=== PATIENT | male | born 1955 | race Caucasian/White ===

== ENCOUNTER 2024-08-20 08:02 | Day surgery (SDC) | payer MEDICARE, MEDICAID ==
[~2024-08-20] VITALS: Ht 170.2 cm; Wt 77.2 kg
[~2024-08-20 08:02] MED LIST: ASPI-611 PO; ATOR40TA72 PO; BETA60LO5 TOP; CARV3.1244 PO; EMPA10TA PO; LOSA25TA41 PO; MULT-1085 PO; NITR0.4T48; SERT-433 PO; SPIR25TA5 PO
[2024-08-20 08:28] VITALS: BP 149/81; PULSE 60; RESP 13
[2024-08-20] MEDS ORDERED: propofol 10mg/ml 20ml vial IV ONE (09:29)
[2024-08-20] MEDS ORDERED: fentaNYL/PF 50MCG/1 ML 2ML syringe ONE (09:32)
[2024-08-20] MEDS ORDERED: midazolam 1 mg/ML 2ml injection ONE (09:33)
[2024-08-20 09:57] VITALS: BP 106/64; PULSE 60; RESP 14; O2SAT 96
[2024-08-20 10:05] VITALS: BP 99/68; PULSE 61; RESP 14; O2SAT 94
[2024-08-20 10:15] VITALS: BP 118/66; PULSE 60; RESP 13; O2SAT 96
[2024-08-20 10:25] VITALS: BP 123/70; PULSE 60; RESP 13; O2SAT 98
== END 2024-08-20 10:36 | disposition home or self-care (01) ==
LOC: GI LAB 08:02
PROVIDERS: ATTEND Internal Medicine Gastroenterology
DX: Z12.11 Encounter for screening for malignant neoplasm of colon (principal); D12.5 Benign neoplasm of sigmoid colon; J44.9 Chronic obstructive pulmonary disease, unspecified; I42.9 Cardiomyopathy, unspecified; E78.5 Hyperlipidemia, unspecified; Z95.5 Presence of coronary angioplasty implant and graft; I25.2 Old myocardial infarction; Z79.82 Long term (current) use of aspirin; Z87.891 Personal history of nicotine dependence
CPT/HCPCS: 45385; 88305; A4620; C1889; J2250; J2704; J3010; J7030; Z7512